=== PATIENT | female | born 1990 | race African-American/Black ===

== ENCOUNTER 2018-12-08 04:09 | Inpatient (IN) | payer MEDICAID ==
[~2018-12-08] VITALS: Ht 165.1 cm; Wt 185.1 kg
[2018-12-08 05:02] LABS: CHLORIDE 106 mEq/L (98-107)
[2018-12-08 05:04] LABS: HEMATOCRIT. 35.2 % (36.0-48.0); HEMOGLOBIN. 11.1 g/dL (12.0-16.0); MEAN CORPUSCULAR HEMOGLOBIN 24.1 pg (28.0-32.0); MEAN CORPUSCULAR VOLUME 76.4 fL (81.0-99.0); MEAN PLATELET VOLUME 7.8 fl (7.4-10.4); PLATELET 399 x1000/uL (130-400); RED BLOOD CELL COUNT 4.61 mill/uL (4.2-5.4); RED CELL DISTRIBUTION WIDTH 16.2 % (11.6-14.6)
[2018-12-08 05:32] LABS: HCG SCREEN NEGATIVE
[2018-12-08 05:51] LABS: CLARITY URINE CLEAR (CLEAR); COLOR URINE YELLOW (YELLOW); KETONES URINE TRACE (NEGATIVE); LEUKOCYTE ESTERASE URINE 1+ (NEGATIVE); NITRITE URINE NEGATIVE (NEGATIVE); OCCULT BLOOD URINE 3+ (NEGATIVE); PH URINE 8.5 (4.5-8.0); PROTEIN URINE NEGATIVE (NEGATIVE)
[2018-12-08] MEDS ORDERED: SODIUM CHLORIDE 0.9% 1,000 ML IV ONE (06:15)
[2018-12-08 06:18] LABS: *AMPHETAMINES SCREEN URINE NEGATIVE (NEGATIVE); *BARBITURATES SCREEN URINE NEGATIVE (NEGATIVE); *COCAINE SCREEN URINE NEGATIVE (NEGATIVE); CANNABINOID URINE SCREEN NEGATIVE (NEGATIVE); PHENCYCLIDINE URINE SCREEN NEGATIVE (NEGATIVE)
[2018-12-08 06:19] LABS: *BENZODIAZEPINES SCREEN URINE NEGATIVE (NEGATIVE); METHADONE URINE SCREEN NEGATIVE (NEGATIVE); OPIATES URINE SCREEN NEGATIVE (NEGATIVE)
[2018-12-08] MEDS ORDERED: SODIUM CHLORIDE 0.9% 1000ML BAG (SEPSIS BOLUS) IV ONE (07:00)
[2018-12-08] MEDS ORDERED: LEVOFLOXACIN 750MG PREMIX 150 ML IV ONE (07:00)
[2018-12-08 07:41] LABS: D-DIMER 0.72 mg/L FEU (<0.50); PARTIAL THROMBOPLASTIN TIME 34.2 sec (23.4-31.0); PROTHROMBIN TIME 10.8 sec (9.6-11.0)
[2018-12-08 10:14] LABS: PLATELET ESTIMATE NORMAL
[2018-12-08] MEDS ORDERED: IOHEXOL-350 100 ML BOTTLE ONE (10:24)
[2018-12-08] MEDS ORDERED: KETOROLAC 15MG/ML VIAL IV PRN (10:30)
[2018-12-08] MEDS ORDERED: NITROGLYCERIN 0.4MG TABLET SL SL PRN (10:30)
[2018-12-08] MEDS ORDERED: DOCUSATE SODIUM 100MG CAPSULE PO PRN (10:30)
[2018-12-08] MEDS ORDERED: ONDANSETRON HCL 4MG/2ML INJ IV PRN (10:30)
[2018-12-08] MEDS ORDERED: MAGNESIUM/ALUMINUM HYDROXIDE/SIMETHICONE 30ML UDC PO PRN (10:30)
[2018-12-08] MEDS ORDERED: CLONIDINE 0.1MG TABLET PO PRN (10:30)
[2018-12-08] MEDS ORDERED: ACETAMINOPHEN 325MG TABLET PO PRN (10:30)
[2018-12-08] MEDS ORDERED: LORAZEPAM 0.5MG TABLET PO PRN (10:30)
[2018-12-08] MEDS ORDERED: IPRATROPIUM/ALBUTEROL 0.5-3(2.5)MG/3ML NEB INH PRN (10:30)
[2018-12-08] MEDS ORDERED: GUAIFENESIN 200MG/10ML SUGAR FREE UDC PO PRN (10:30)
[2018-12-08] MEDS ORDERED: SERT25TA PO (11:53)
[2018-12-08 12:00] VITALS: BP 157/89
[2018-12-08] MEDS ORDERED: BENA20TA77 PO (12:09)
[2018-12-08 12:30] VITALS: BP 157/89
[2018-12-08] MEDS: FAMOTIDINE 20MG TABLET PO SCH ×2 (12:51→21:20)
[2018-12-08] MEDS: ASCORBIC ACID 500 MG TABLET PO SCH ×2 (12:51→21:20)
[2018-12-08] MEDS: GUAIFENESIN/DM 600MG/30MG ER TAB 12HR PO SCH ×2 (12:51→21:20)
[2018-12-08] MEDS ORDERED: AZITHROMYCIN 500 MG in DEXT 5% WATER 250 ML IV SCH (13:00)
[2018-12-08] MEDS: CEFTRIAXONE 1 G PREMIX 50 ML IV SCH (14:34)
[2018-12-08 16:00] VITALS: BP 147/89
[2018-12-08 20:00] VITALS: BP 148/93
[2018-12-08] MEDS ORDERED: ZOLPIDEM TARTRATE 5MG TABLET PO PRN (21:00)
[2018-12-09] VITALS: BP 146/86
[2018-12-09 03:54] VITALS: BP 139/95
[2018-12-09 08:00] VITALS: BP 157/99
[2018-12-09] MEDS: FAMOTIDINE 20MG TABLET PO SCH (08:40)
[2018-12-09] MEDS: GUAIFENESIN/DM 600MG/30MG ER TAB 12HR PO SCH (08:40)
[2018-12-09] MEDS: CEFTRIAXONE 1 G PREMIX 50 ML IV SCH (08:40)
[2018-12-09] MEDS: ASCORBIC ACID 500 MG TABLET PO SCH (08:40)
[2018-12-09 10:11] VITALS: BP 157/99
== END 2018-12-09 12:00 | disposition home or self-care (01) | DRG 463 ==
LOC: ER 04:09 → EDBEDREQTM 06:54 → EDBEDREQ 06:54 → 6WST 10:31 → EDBEDREQTM 10:34 → EDBEDREQ 10:34 → ENRESERV 10:50
PROVIDERS: ADMIT Internal Medicine; ATTEND Internal Medicine
DX: N39.0 Urinary tract infection, site not specified (principal); J18.9 Pneumonia, unspecified organism; R65.10 Systemic inflammatory response syndrome (SIRS) of non-infectious origin without acute organ dysfunction; E66.01 Morbid (severe) obesity due to excess calories; E44.1 Mild protein-calorie malnutrition; Z68.44 Body mass index [BMI] 60.0-69.9, adult; D64.9 Anemia, unspecified
CPT/HCPCS: 36415; 71045; 71275; 80305; 81025; 83036; 83605; 84484; 84703; 85379; 93005; 93970; 96361; 96365; 99285; C1893; J0456; J0696; J1885; J1956; J7030; J7050; J7060; Q9967

== ENCOUNTER 2021-07-30 23:19 | Emergency (ER) | payer OTHER, MEDICAID ==
[~2021-07-30] VITALS: Ht 165.1 cm; Wt 188.0 kg
[~2021-07-30 23:19] MED LIST: BENA20TA77 PO; SERT25TA PO
[2021-07-31] MEDS ORDERED: LABETALOL HCL VIAL 20 MG/4 ML VIAL IV ONE (00:45)
[2021-07-31 01:02] LABS: BASOPHILS % 0.7 % (0.0-2.0); EOSINOPHILS % 1.1 % (0.0-5.0); HEMOGLOBIN. 12.8 g/dL (12.0-16.0); LYMPHOCYTES % 35.3 % (20.0-50.0); MEAN CORPUSCULAR HEMOGLOBIN 24.4 pg (28.0-32.0); MEAN CORPUSCULAR VOLUME 77.9 fL (81.0-99.0); MEAN PLATELET VOLUME 8.6 fl (7.4-10.4); NEUTROPHILS % 58.9 % (40.0-76.0); PLATELET 349 x1000/uL (130-400); RED BLOOD CELL COUNT 5.27 mill/uL (4.2-5.4); RED CELL DISTRIBUTION WIDTH 15.8 % (11.6-14.6)
[2021-07-31 01:09] LABS: CHLORIDE 101 mEq/L (98-107)
[2021-07-31 01:10] LABS: HCG SCREEN NEGATIVE
[2021-07-31] MEDS ORDERED: INSULIN REGULAR (HUMULIN R) 300UNITS/3ML VIAL IV ONE (01:30)
[2021-07-31] MEDS ORDERED: HYDRALAZINE 20MG/ML VIAL IV ONE (01:30)
[2021-07-31] MEDS ORDERED: SODIUM CHLORIDE 0.9% 500 ML IV ONE (01:30)
[2021-07-31] MEDS ORDERED: METF-414 MT (03:08)
[2021-07-31] MEDS ORDERED: AMLO10TA80 MT (03:09)
[2021-07-31 03:40] VITALS: BP 160/93
== END 2021-07-31 03:40 | disposition home or self-care (01) ==
LOC: ER 23:19
DX: I10 Essential (primary) hypertension (principal); R51.9 Headache, unspecified
CPT/HCPCS: 36415; 71045; 80053; 84484; 84703; 85025; 93005; 96361; 96374; 96375; 99285; J0360; J1815; J3490; J7040

== ENCOUNTER 2021-08-28 07:39 | Inpatient (IN) | payer OTHER, MEDICAID ==
[~2021-08-28] VITALS: Ht 165.1 cm; Wt 175.1 kg
[~2021-08-28 07:39] MED LIST changes: +AMLO10TA80 MT; +METF-414 MT
[2021-08-28] MEDS ORDERED: SODIUM CHLORIDE 0.9% 1,000 ML IV ONE (08:00)
[2021-08-28 08:51] LABS: BASOPHILS % 0.4 % (0.0-2.0); EOSINOPHILS % 0.2 % (0.0-5.0); HEMATOCRIT. 47.1 % (36.0-48.0); HEMOGLOBIN. 14.9 g/dL (12.0-16.0); LYMPHOCYTES % 12.7 % (20.0-50.0); MEAN CORPUSCULAR HEMOGLOBIN 24.8 pg (28.0-32.0); MEAN CORPUSCULAR VOLUME 78.1 fL (81.0-99.0); MEAN PLATELET VOLUME 8.8 fl (7.4-10.4); MONOCYTES % 8.7 % (2.0-8.0); PLATELET 432 x1000/uL (130-400); RED BLOOD CELL COUNT 6.02 mill/uL (4.2-5.4); RED CELL DISTRIBUTION WIDTH 18.1 % (11.6-14.6)
[2021-08-28] MEDS ORDERED: INSULIN LISPRO 100 UNITS/ML SUBCUT ONE (09:00)
[2021-08-28 09:01] LABS: CHLORIDE 98 mEq/L (98-107)
[2021-08-28 09:02] LABS: CLARITY URINE TURBID (CLEAR); COLOR URINE ORANGE (YELLOW); KETONES URINE 4+ (NEGATIVE); LEUKOCYTE ESTERASE URINE 2+ (NEGATIVE); NITRITE URINE NEGATIVE (NEGATIVE); OCCULT BLOOD URINE 3+ (NEGATIVE); PROTEIN URINE 2+ (NEGATIVE); SPECIFIC GRAVITY URINE 1.035 (1.005-1.030); UROBILINOGEN URINE 0.2 E.U./dL (0.2-1.0)
[2021-08-28 09:18] LABS: HCG SCREEN NEGATIVE
[2021-08-28] MEDS ORDERED: SODIUM CHLORIDE 0.9% 1000ML BAG (SEPSIS BOLUS) IV SCH (10:00)
[2021-08-28] MEDS ORDERED: SODIUM CHLORIDE 0.45% 1,000 ML IV ONE (10:00)
[2021-08-28] MEDS ORDERED: VANCOMYCIN 1G PREMIX 200 ML IV SCH (10:00)
[2021-08-28] MEDS ORDERED: CEFTRIAXONE 1 G PREMIX 50 ML IV SCH (10:00)
[2021-08-28 10:57] LABS: BG BASE EXCESS -18.5 mmol/L (-2.0-2.0); BG CARBOXYHEMOGLOBIN 0.8 % (0.5-1.5); BG DEOXYHEMOGLOBIN 1.7 % (0.0-5.0); BG FRACTION INSPIRED OXYGEN 21; BG HCO3 ACT 7.2 mmol/L (22.0-26.0); BG METHEMOGLOBIN 0.4 % (0.0-1.5); BG OXYGEN SATURATION 98.3 % (92.0-98.5); BG OXYHEMOGLOBIN 97.1 % (94.0-97.0); BG PCO2 19.1 mmHg (35.0-45.0); BG PH 7.197 (7.350-7.450); BG SAMPLE SITE RIGHT RADIAL; BG VENT MODE ROOM AIR
[2021-08-28] MEDS ORDERED: INSULIN REGULAR 100U/100ML PMX 100 ML IV SCH ×3 (11:00→21:15)
[2021-08-28 11:23] LABS: CHLORIDE 99 mEq/L (98-107)
[2021-08-28 11:25] LABS: PHOSPHORUS 2.3 mg/dL (2.5-4.9)
[2021-08-28 12:44] LABS: CHLORIDE 102 mEq/L (98-107)
[2021-08-28] MEDS ORDERED: ACETAMINOPHEN 325MG TABLET PO PRN ×2 (14:15)
[2021-08-28] MEDS ORDERED: GUAIFENESIN 200MG/10ML SUGAR FREE UDC PO PRN (14:15)
[2021-08-28] MEDS ORDERED: MAGNESIUM/ALUMINUM HYDROXIDE/SIMETHICONE 30ML UDC PO PRN (14:15)
[2021-08-28] MEDS ORDERED: CLONIDINE 0.1MG TABLET PO PRN (14:15)
[2021-08-28] MEDS ORDERED: ENOXAPARIN 40MG/0.4ML SYR SUBCUT SCH (14:15)
[2021-08-28 15:03] LABS: CHLORIDE 108 mEq/L (98-107)
[2021-08-28] MEDS: AMLODIPINE 10MG TABLET PO SCH (15:09)
[2021-08-28] MEDS: ENOXAPARIN 30MG/0.3ML SYR SUBCUT SCH (17:17)
[2021-08-28 18:29] LABS: CHLORIDE 108 mEq/L (98-107)
[2021-08-28] MEDS ORDERED: DEXT 5%/0.45% NACL 1000ML 1,000 ML IV ONE (20:15)
[2021-08-28] MEDS ORDERED: DEXT 5%/0.45% NACL 1000ML 1,000 ML IV SCH (21:00)
[2021-08-28] MEDS: BENAZEPRIL 10MG TABLET PO SCH (21:00)
[2021-08-28] MEDS ORDERED: DEXTROSE 50% WATER 50ML SYRINGE IV PRN ×2 (21:00)
[2021-08-28] MEDS ORDERED: INSULIN REGULAR (DRIP) 100 UNITS in SODIUM CHLORIDE 0.9% 100 ML IV SCH (21:00)
[2021-08-28] MEDS ORDERED: SODIUM CHL 0.9% + KCL 20MEQ/L 1,000 ML IV SCH (22:00)
[2021-08-28 22:22] LABS: CHLORIDE 106 mEq/L (98-107)
[2021-08-28] MEDS: BLOOD SUGAR DIAGNOSTIC STRIP TEST SCH ×3 (22:31→23:20)
[2021-08-28] MEDS: SODIUM CHL 0.45% + KCL 20MEQ/L 1,000 ML IV SCH (23:46)
[2021-08-29] VITALS (14 sets, daily range): BP systolic 115–155; BP diastolic 70–126
[2021-08-29] MEDS ORDERED: POTASSIUM CHLORIDE INJ 40 MEQ in DEXT 5% WATER 250 ML IV SCH ×2
[2021-08-29] MEDS ORDERED: KCL 20MEQ/100ML PREMIX 100 ML IV SCH
[2021-08-29] MEDS: BLOOD SUGAR DIAGNOSTIC STRIP TEST SCH ×24 (00:26→23:00)
[2021-08-29 02:53] LABS: CHLORIDE 104 mEq/L (98-107)
[2021-08-29] MEDS: SODIUM CHL 0.45% + KCL 20MEQ/L 1,000 ML IV SCH (04:30)
[2021-08-29 05:56] LABS: HEMATOCRIT. 42.1 % (36.0-48.0); MEAN CORPUSCULAR HEMOGLOBIN 24.4 pg (28.0-32.0); MEAN CORPUSCULAR VOLUME 79.1 fL (81.0-99.0); RED BLOOD CELL COUNT 5.32 mill/uL (4.2-5.4); RED CELL DISTRIBUTION WIDTH 17.7 % (11.6-14.6)
[2021-08-29 06:02] LABS: CHLORIDE 106 mEq/L (98-107)
[2021-08-29] MEDS: SODIUM CHLORIDE 0.9% 1,000 ML IV SCH ×3 (06:16→13:56)
[2021-08-29] MEDS: ENOXAPARIN 30MG/0.3ML SYR SUBCUT SCH (06:23)
[2021-08-29 08:36] LABS: MEAN PLATELET VOLUME 8.7 fl (7.4-10.4); PLATELET 354 x1000/uL (130-400); PLATELET ESTIMATE NORMAL
[2021-08-29] MEDS: AMLODIPINE 10MG TABLET PO SCH (09:00)
[2021-08-29] MEDS: PANTOPRAZOLE SODIUM 40 MG/VIAL IV SCH (10:45)
[2021-08-29 10:53] LABS: CHLORIDE 109 mEq/L (98-107)
[2021-08-29] MEDS ORDERED: HYDROCODONE/ACETAMINOPHEN 5/325MG TABLET PO SCH (11:45)
[2021-08-29] MEDS ORDERED: MORPHINE SULFATE 4 MG/ML CPJ (NOT FOR IM USE) IV PRN (13:15)
[2021-08-29] MEDS: CEFTRIAXONE 1,000 MG in DEXTROSE 5% WATER 50 ML IV SCH (13:47)
[2021-08-29] MEDS ORDERED: ACETAMINOPHEN 325MG TABLET PO PRN (14:15)
[2021-08-29 14:23] LABS: CHLORIDE 109 mEq/L (98-107)
[2021-08-29] MEDS ORDERED: DEXT 5%/0.45% NACL 1000ML 1,000 ML IV SCH (15:00)
[2021-08-29] MEDS ORDERED: KCL 20MEQ/100ML PREMIX 100 ML IV NR ×2 (16:00→23:00)
[2021-08-29] MEDS: ENOXAPARIN 40MG/0.4ML SYR SUBCUT SCH (18:07)
[2021-08-29 18:35] LABS: CHLORIDE 110 mEq/L (98-107)
[2021-08-29] MEDS: HYDROCODONE/ACETAMINOPHEN 5/325MG TABLET PO PRN ×3 (21:14→22:28)
[2021-08-29] MEDS: BENAZEPRIL 10MG TABLET PO SCH (21:14)
[2021-08-29 21:57] LABS: CHLORIDE 112 mEq/L (98-107)
[2021-08-29] MEDS: DEXT 5%/0.45% NACL KCL 20MEQ/L 1,000 ML IV SCH (22:44)
[2021-08-29] MEDS ORDERED: PHENYLEPHRINE 50 MG in DEXT 5% WATER 245 ML IV PRN (23:15)
[2021-08-30] VITALS (14 sets, daily range): BP systolic 82–130; BP diastolic 49–86
[2021-08-30] MEDS: BLOOD SUGAR DIAGNOSTIC STRIP TEST SCH ×15 (00:06→21:00)
[2021-08-30 00:50] LABS: CHLORIDE 112 mEq/L (98-107)
[2021-08-30 02:30] LABS: CHLORIDE 112 mEq/L (98-107)
[2021-08-30] MEDS: DEXT 5%/0.45% NACL KCL 20MEQ/L 1,000 ML IV SCH ×4 (04:30→16:30)
[2021-08-30] MEDS: DOXYCYCLINE 100 MG in DEXT 5% WATER 100 ML IV SCH ×3 (04:32→23:58)
[2021-08-30] MEDS: ENOXAPARIN 40MG/0.4ML SYR SUBCUT SCH ×2 (05:28→18:37)
[2021-08-30] MEDS: FLUCONAZOLE 200 MG/100ML BAG 100 ML IV SCH (05:31)
[2021-08-30 06:49] LABS: HEMATOCRIT. 38.1 % (36.0-48.0); HEMOGLOBIN. 12.2 g/dL (12.0-16.0); MEAN CORPUSCULAR HEMOGLOBIN 24.2 pg (28.0-32.0); MEAN CORPUSCULAR VOLUME 75.5 fL (81.0-99.0); MEAN PLATELET VOLUME 8.6 fl (7.4-10.4); PLATELET 357 x1000/uL (130-400); RED BLOOD CELL COUNT 5.04 mill/uL (4.2-5.4); RED CELL DISTRIBUTION WIDTH 17.7 % (11.6-14.6)
[2021-08-30 07:36] LABS: CHLORIDE 114 mEq/L (98-107)
[2021-08-30 07:53] LABS: PHOSPHORUS 0.7 mg/dL (2.5-4.9)
[2021-08-30] MEDS ORDERED: KCL 20MEQ/100ML PREMIX 100 ML IV SCH (09:00)
[2021-08-30] MEDS: AMLODIPINE 10MG TABLET PO SCH (09:00)
[2021-08-30] MEDS ORDERED: NALOXONE HCL 0.4MG/ML VIAL IV PRN (09:15)
[2021-08-30] MEDS: NYSTATIN POWDER 15GM TOP SCH ×3 (09:31→18:37)
[2021-08-30] MEDS ORDERED: INSULIN GLARGINE UD 100 UNITS/ML SYR SUBCUT SCH ×2 (10:00)
[2021-08-30] MEDS ORDERED: POTASSIUM PHOS,M-BASIC-D-BASIC 30 MMOL in SODIUM CHLORIDE 0.9% 500 ML IV NR (10:00)
[2021-08-30] MEDS: PANTOPRAZOLE SODIUM 40 MG/VIAL IV SCH (10:01)
[2021-08-30] MEDS ORDERED: INSULIN LISPRO 100 UNITS/ML SUBCUT SCH (11:30)
[2021-08-30] MEDS: INSULIN LISPRO 100 UNITS/ML SUBCUT SCH ×6 (12:50→22:33)
[2021-08-30] MEDS: HYDROCODONE/ACETAMINOPHEN 5/325MG TABLET PO PRN (13:05)
[2021-08-30] MEDS ORDERED: NYSTATIN/TRIAMCIN CREAM 15GM TOP SCH (15:00)
[2021-08-30] MEDS: CEFTRIAXONE 1,000 MG in DEXTROSE 5% WATER 50 ML IV SCH (15:01)
[2021-08-30 16:38] LABS: PLATELET ESTIMATE NORMAL
[2021-08-30] MEDS: MORPHINE SULFATE 2 MG/ML CPJ (NOT FOR IM USE) IV PRN (18:04)
[2021-08-30] MEDS: CHLORHEXIDINE GLUCONATE 4% EXTERNAL USE TOP SCH ×2 (18:37→22:22)
[2021-08-30 20:37] LABS: CHLORIDE 113 mEq/L (98-107)
[2021-08-30] MEDS ORDERED: POTASSIUM CHLORIDE INJ 40 MEQ in DEXT 5% WATER 250 ML IV ONE (21:00)
[2021-08-30] MEDS ORDERED: KCL 20MEQ/100ML PREMIX 100 ML IV NR (22:00)
[2021-08-30] MEDS ORDERED: KCL 20MEQ/100ML X 2 FOR TOTAL KCL 40MEQ/200ML IV SCH (22:00)
[2021-08-31] VITALS (15 sets, daily range): BP systolic 106–142; BP diastolic 67–99
[2021-08-31] MEDS: FLUCONAZOLE 200 MG/100ML BAG 100 ML IV SCH (00:46)
[2021-08-31] MEDS: MORPHINE SULFATE 2 MG/ML CPJ (NOT FOR IM USE) IV PRN ×2 (04:09→18:06)
[2021-08-31] MEDS: ENOXAPARIN 40MG/0.4ML SYR SUBCUT SCH ×2 (06:44→17:21)
[2021-08-31] MEDS: POLYETHYLENE GLYCOL 3350 (17GM) 1 DOSE PACK PO PRN (06:44)
[2021-08-31 07:08] LABS: HEMATOCRIT. 39.6 % (36.0-48.0); HEMOGLOBIN. 13.1 g/dL (12.0-16.0); MEAN CORPUSCULAR HEMOGLOBIN 25.2 pg (28.0-32.0); MEAN CORPUSCULAR VOLUME 76.3 fL (81.0-99.0); MEAN PLATELET VOLUME 9.3 fl (7.4-10.4); PLATELET 355 x1000/uL (130-400); RED BLOOD CELL COUNT 5.19 mill/uL (4.2-5.4)
[2021-08-31 07:15] LABS: CHLORIDE 110 mEq/L (98-107)
[2021-08-31 07:27] LABS: PHOSPHORUS 2.1 mg/dL (2.5-4.9)
[2021-08-31] MEDS: BLOOD SUGAR DIAGNOSTIC STRIP TEST SCH ×4 (08:46→21:00)
[2021-08-31] MEDS: AMLODIPINE 10MG TABLET PO SCH (08:49)
[2021-08-31] MEDS: PANTOPRAZOLE SODIUM 40 MG/VIAL IV SCH (09:01)
[2021-08-31] MEDS: INSULIN LISPRO 100 UNITS/ML SUBCUT SCH ×7 (09:02→22:22)
[2021-08-31] MEDS: CHLORHEXIDINE GLUCONATE 4% EXTERNAL USE TOP SCH ×4 (09:03→22:18)
[2021-08-31] MEDS: NYSTATIN POWDER 15GM TOP SCH ×3 (09:03→17:20)
[2021-08-31] MEDS ORDERED: POTASSIUM PHOS,M-BASIC-D-BASIC 15 MMOL in DEXT 5% WATER 245 ML IV NR (10:00)
[2021-08-31] MEDS ORDERED: INSULIN GLARGINE UD 100 UNITS/ML SYR SUBCUT SCH (11:00)
[2021-08-31] MEDS: CEFTRIAXONE 1,000 MG in DEXTROSE 5% WATER 50 ML IV SCH (14:11)
[2021-08-31 14:35] LABS: CHLORIDE 108 mEq/L (98-107)
[2021-08-31 14:41] LABS: PHOSPHORUS 1.8 mg/dL (2.5-4.9)
[2021-08-31] MEDS: SODIUM CHL 0.9% + KCL 20MEQ/L 1,000 ML IV SCH ×2 (15:08→22:28)
[2021-08-31 16:35] LABS: PLATELET ESTIMATE NORMAL
[2021-09-01] VITALS: BP 129/95
[2021-09-01] MEDS: SODIUM CHL 0.9% + KCL 20MEQ/L 1,000 ML IV SCH ×3 (01:35→19:02)
[2021-09-01] MEDS: FLUCONAZOLE 200 MG/100ML BAG 100 ML IV SCH (01:40)
[2021-09-01 02:26] LABS: CHLORIDE 109 mEq/L (98-107)
[2021-09-01 02:33] LABS: PHOSPHORUS 2.6 mg/dL (2.5-4.9)
[2021-09-01 04:00] VITALS: BP 143/98
[2021-09-01] MEDS: ENOXAPARIN 40MG/0.4ML SYR SUBCUT SCH ×2 (05:26→19:03)
[2021-09-01] MEDS: DOXYCYCLINE 100 MG in DEXT 5% WATER 100 ML IV SCH ×2 (05:26→13:48)
[2021-09-01 06:25] LABS: HEMATOCRIT. 35.2 % (36.0-48.0); HEMOGLOBIN. 11.5 g/dL (12.0-16.0); MEAN CORPUSCULAR HEMOGLOBIN 24.5 pg (28.0-32.0); MEAN CORPUSCULAR VOLUME 75.2 fL (81.0-99.0); MEAN PLATELET VOLUME 8.6 fl (7.4-10.4); PLATELET 381 x1000/uL (130-400); RED BLOOD CELL COUNT 4.68 mill/uL (4.2-5.4); RED CELL DISTRIBUTION WIDTH 17.6 % (11.6-14.6)
[2021-09-01 07:14] LABS: CHLORIDE 106 mEq/L (98-107)
[2021-09-01 07:19] LABS: PHOSPHORUS 2.4 mg/dL (2.5-4.9)
[2021-09-01] MEDS: BLOOD SUGAR DIAGNOSTIC STRIP TEST SCH ×3 (07:20→17:20)
[2021-09-01] MEDS ORDERED: POTASSIUM CHLORIDE INJ 40 MEQ in DEXT 5% WATER 500 ML IV ONE (07:45)
[2021-09-01 08:00] VITALS: BP 137/94
[2021-09-01] MEDS: PANTOPRAZOLE SODIUM 40 MG/VIAL IV SCH (08:56)
[2021-09-01] MEDS: ONDANSETRON HCL 4MG/2ML INJ IV PRN (08:57)
[2021-09-01] MEDS: AMLODIPINE 10MG TABLET PO SCH (08:57)
[2021-09-01] MEDS: NYSTATIN POWDER 15GM TOP SCH ×3 (09:48→19:08)
[2021-09-01] MEDS: CHLORHEXIDINE GLUCONATE 4% EXTERNAL USE TOP SCH ×4 (09:48→21:20)
[2021-09-01] MEDS: INSULIN LISPRO 100 UNITS/ML SUBCUT SCH ×5 (09:49→21:21)
[2021-09-01] MEDS ORDERED: KCL 20MEQ/100ML X 2 FOR TOTAL KCL 40MEQ/200ML IV SCH (10:00)
[2021-09-01] MEDS ORDERED: INSULIN GLARGINE UD 100 UNITS/ML SYR SUBCUT SCH (10:00)
[2021-09-01 10:11] LABS: PLATELET ESTIMATE NORMAL
[2021-09-01 12:00] VITALS: BP 117/79
[2021-09-01] MEDS ORDERED: POTASSIUM CHLORIDE 20MEQ TABLET SR PO NR (12:15)
[2021-09-01] MEDS ORDERED: INSULIN GLARGINE UD 100 UNITS/ML SYR SUBCUT NR ×2 (13:00→20:00)
[2021-09-01] MEDS: CEFTRIAXONE 1,000 MG in DEXTROSE 5% WATER 50 ML IV SCH (15:39)
[2021-09-01 16:00] VITALS: BP 137/84
[2021-09-01 17:34] LABS: CHLORIDE 105 mEq/L (98-107)
[2021-09-01 17:39] LABS: PHOSPHORUS 1.7 mg/dL (2.5-4.9)
[2021-09-01] MEDS ORDERED: INSULIN LISPRO 100 UNITS/ML SUBCUT NR (18:40)
[2021-09-01 20:00] VITALS: BP 139/91
[2021-09-01] MEDS ORDERED: POTASSIUM PHOS,M-BASIC-D-BASIC 30 MMOL in DEXT 5% WATER 500 ML IV NR (20:00)
[2021-09-02] VITALS: BP 154/106
[2021-09-02] MEDS: FLUCONAZOLE 200 MG/100ML BAG 100 ML IV SCH (00:11)
[2021-09-02] MEDS: DOXYCYCLINE 100 MG in DEXT 5% WATER 100 ML IV SCH ×2 (00:11→12:47)
[2021-09-02] MEDS: SODIUM CHL 0.9% + KCL 20MEQ/L 1,000 ML IV SCH ×3 (02:55→23:19)
[2021-09-02 04:00] VITALS: BP 145/81
[2021-09-02] MEDS: ENOXAPARIN 40MG/0.4ML SYR SUBCUT SCH ×2 (06:06→18:53)
[2021-09-02 07:50] VITALS: BP 139/102
[2021-09-02] MEDS: AMLODIPINE 10MG TABLET PO SCH (09:21)
[2021-09-02] MEDS: FAMOTIDINE 20MG/2ML VIAL IV SCH ×2 (09:21→20:33)
[2021-09-02] MEDS: INSULIN LISPRO 100 UNITS/ML SUBCUT SCH ×7 (09:27→21:24)
[2021-09-02] MEDS ORDERED: INSULIN GLARGINE UD 100 UNITS/ML SYR SUBCUT SCH (10:00)
[2021-09-02 12:00] VITALS: BP 135/80
[2021-09-02] MEDS: INSULIN GLARGINE UD 100 UNITS/ML SYR SUBCUT SCH (12:46)
[2021-09-02] MEDS: CHLORHEXIDINE GLUCONATE 4% EXTERNAL USE TOP SCH ×4 (12:47→20:33)
[2021-09-02] MEDS: NYSTATIN POWDER 15GM TOP SCH ×3 (12:47→18:56)
[2021-09-02 15:49] LABS: CLARITY URINE CLEAR (CLEAR); KETONES URINE NEGATIVE (NEGATIVE); LEUKOCYTE ESTERASE URINE 1+ (NEGATIVE); NITRITE URINE NEGATIVE (NEGATIVE); OCCULT BLOOD URINE 2+ (NEGATIVE); PROTEIN URINE 1+ (NEGATIVE); SPECIFIC GRAVITY URINE 1.009 (1.005-1.030); UROBILINOGEN URINE 0.2 E.U./dL (0.2-1.0)
[2021-09-02] MEDS: CEFTRIAXONE 1,000 MG in DEXTROSE 5% WATER 50 ML IV SCH (16:02)
[2021-09-02 16:09] VITALS: BP 159/92
[2021-09-02 16:14] LABS: COLOR URINE YELLOW (YELLOW)
[2021-09-02 17:54] LABS: HEMATOCRIT. 34.4 % (36.0-48.0); MEAN CORPUSCULAR VOLUME 75.4 fL (81.0-99.0); MEAN PLATELET VOLUME 8.6 fl (7.4-10.4); PLATELET 385 x1000/uL (130-400); RED BLOOD CELL COUNT 4.56 mill/uL (4.2-5.4); RED CELL DISTRIBUTION WIDTH 17.2 % (11.6-14.6)
[2021-09-02 18:02] LABS: CHLORIDE 104 mEq/L (98-107)
[2021-09-02 18:09] LABS: PHOSPHORUS 2.3 mg/dL (2.5-4.9)
[2021-09-02 18:23] LABS: PLATELET ESTIMATE NORMAL
[2021-09-02] MEDS ORDERED: POTASSIUM CHLORIDE INJ 40 MEQ in DEXT 5% WATER 250 ML IV ONE (18:30)
[2021-09-02 20:00] VITALS: BP 126/86
[2021-09-02] MEDS: KCL 20MEQ/100ML X 2 FOR TOTAL KCL 40MEQ/200ML IV SCH ×2 (20:00→20:33)
[2021-09-02] MEDS ORDERED: POTASSIUM CHLORIDE 20MEQ TABLET SR PO SCH (20:00)
[2021-09-03] VITALS: BP 150/92
[2021-09-03] MEDS ORDERED: KCL 20MEQ/100ML PREMIX 100 ML IV SCH
[2021-09-03] MEDS: DOXYCYCLINE 100 MG in DEXT 5% WATER 100 ML IV SCH ×2 (00:28→13:27)
[2021-09-03] MEDS: FLUCONAZOLE 200 MG/100ML BAG 100 ML IV SCH (00:28)
[2021-09-03 00:49] LABS: CHLORIDE 103 mEq/L (98-107)
[2021-09-03 04:00] VITALS: BP 145/83
[2021-09-03] MEDS: ENOXAPARIN 40MG/0.4ML SYR SUBCUT SCH ×2 (05:01→17:58)
[2021-09-03 06:51] LABS: HEMATOCRIT. 34.4 % (36.0-48.0); MEAN PLATELET VOLUME 8.7 fl (7.4-10.4); PLATELET 389 x1000/uL (130-400); RED BLOOD CELL COUNT 4.59 mill/uL (4.2-5.4); RED CELL DISTRIBUTION WIDTH 17.2 % (11.6-14.6)
[2021-09-03 06:58] LABS: CHLORIDE 102 mEq/L (98-107)
[2021-09-03 07:07] LABS: PHOSPHORUS 2.3 mg/dL (2.5-4.9)
[2021-09-03] MEDS: INSULIN LISPRO 100 UNITS/ML SUBCUT SCH ×7 (07:20→20:32)
[2021-09-03 08:00] VITALS: BP 132/75
[2021-09-03] MEDS ORDERED: POTASSIUM CHLORIDE 20MEQ/PACKET PO NR (08:45)
[2021-09-03] MEDS: AMLODIPINE 10MG TABLET PO SCH (09:42)
[2021-09-03] MEDS: FAMOTIDINE 20MG/2ML VIAL IV SCH ×2 (09:42→20:19)
[2021-09-03] MEDS: SODIUM CHL 0.9% + KCL 20MEQ/L 1,000 ML IV SCH (09:43)
[2021-09-03] MEDS: NYSTATIN POWDER 15GM TOP SCH ×3 (09:43→18:02)
[2021-09-03] MEDS ORDERED: POTASSIUM PHOS,M-BASIC-D-BASIC 15 MMOL in DEXT 5% WATER 245 ML IV SCH (10:00)
[2021-09-03] MEDS: INSULIN GLARGINE UD 100 UNITS/ML SYR SUBCUT SCH (11:01)
[2021-09-03] MEDS: CHLORHEXIDINE GLUCONATE 4% EXTERNAL USE TOP SCH ×4 (11:08→20:20)
[2021-09-03 12:00] VITALS: BP 138/78
[2021-09-03 12:51] LABS: PLATELET ESTIMATE NORMAL
[2021-09-03 16:00] VITALS: BP 122/76
[2021-09-03 16:29] LABS: CHLORIDE 104 mEq/L (98-107)
[2021-09-03 16:34] LABS: PHOSPHORUS 2.5 mg/dL (2.5-4.9)
[2021-09-03 16:35] LABS: TOTAL IRON BINDING CAPACITY 175 ug/dL (250-450)
[2021-09-03 16:49] LABS: FOLIC ACID (FOLATE) SERUM 9.7 ng/mL (>5.38)
[2021-09-03] MEDS: FERROUS SULFATE 325MG TABLET PO SCH (17:58)
[2021-09-03] MEDS: POTASSIUM CHLORIDE 20MEQ/PACKET PO SCH (18:06)
[2021-09-03 20:00] VITALS: BP 113/76
[2021-09-03] MEDS: POLYETHYLENE GLYCOL 3350 (17GM) 1 DOSE PACK PO PRN (20:19)
[2021-09-04] VITALS: BP 109/79
[2021-09-04] MEDS: DOXYCYCLINE 100 MG in DEXT 5% WATER 100 ML IV SCH (00:29)
[2021-09-04] MEDS: FLUCONAZOLE 200 MG/100ML BAG 100 ML IV SCH (00:29)
[2021-09-04 04:00] VITALS: BP 124/83
[2021-09-04] MEDS: ENOXAPARIN 40MG/0.4ML SYR SUBCUT SCH ×2 (05:41→17:28)
[2021-09-04 07:18] LABS: HEMATOCRIT. 33.8 % (36.0-48.0); MEAN CORPUSCULAR HEMOGLOBIN 24.9 pg (28.0-32.0); MEAN CORPUSCULAR VOLUME 76.6 fL (81.0-99.0); MEAN PLATELET VOLUME 8.5 fl (7.4-10.4); PLATELET 391 x1000/uL (130-400); RED BLOOD CELL COUNT 4.42 mill/uL (4.2-5.4); RED CELL DISTRIBUTION WIDTH 17.6 % (11.6-14.6)
[2021-09-04] MEDS: INSULIN LISPRO 100 UNITS/ML SUBCUT SCH ×7 (07:20→21:00)
[2021-09-04 07:41] LABS: CHLORIDE 102 mEq/L (98-107)
[2021-09-04 07:47] LABS: PHOSPHORUS 2.9 mg/dL (2.5-4.9)
[2021-09-04 08:00] VITALS: BP 132/85
[2021-09-04] MEDS: INSULIN GLARGINE UD 100 UNITS/ML SYR SUBCUT SCH (10:00)
[2021-09-04] MEDS: FAMOTIDINE 20MG/2ML VIAL IV SCH ×2 (10:06→21:47)
[2021-09-04] MEDS: AMLODIPINE 10MG TABLET PO SCH (10:07)
[2021-09-04] MEDS: POTASSIUM CHLORIDE 20MEQ/PACKET PO SCH ×2 (10:08→17:29)
[2021-09-04] MEDS: NYSTATIN POWDER 15GM TOP SCH ×3 (10:08→17:29)
[2021-09-04] MEDS: CHLORHEXIDINE GLUCONATE 4% EXTERNAL USE TOP SCH ×4 (10:09→21:48)
[2021-09-04 12:00] VITALS: BP 109/76
[2021-09-04 12:39] LABS: CHLORIDE 102 mEq/L (98-107)
[2021-09-04 12:45] LABS: PHOSPHORUS 3.5 mg/dL (2.5-4.9)
[2021-09-04 13:23] LABS: CLARITY URINE CLEAR (CLEAR); COLOR URINE YELLOW (YELLOW); KETONES URINE TRACE (NEGATIVE); LEUKOCYTE ESTERASE URINE TRACE (NEGATIVE); NITRITE URINE NEGATIVE (NEGATIVE); OCCULT BLOOD URINE 1+ (NEGATIVE); PH URINE 6.5 (4.5-8.0); PROTEIN URINE TRACE (NEGATIVE); SPECIFIC GRAVITY URINE 1.012 (1.005-1.030); UROBILINOGEN URINE 0.2 E.U./dL (0.2-1.0)
[2021-09-04 13:59] LABS: NUCLEATED RED BLOOD CELLS 1 /100 WBC; PLATELET ESTIMATE NORMAL
[2021-09-04 16:00] VITALS: BP 118/85
[2021-09-04] MEDS: DOXYCYCLINE HYCLATE 100MG CAPSULE PO SCH (17:28)
[2021-09-04 20:00] VITALS: BP 134/85
[2021-09-04] MEDS: ONDANSETRON HCL 4MG/2ML INJ IV PRN (21:47)
[2021-09-04] MEDS ORDERED: NYST15PO4 TP ×2 (22:37)
[2021-09-04] MEDS ORDERED: HIBIL TOP ×2 (22:37)
[2021-09-04] MEDS ORDERED: INSU100I38 SQ ×2 (22:37)
[2021-09-04] MEDS ORDERED: DOXY100C5 PO ×2 (22:37)
[2021-09-04] MEDS ORDERED: POLY17PO3 PO ×2 (22:37)
[2021-09-04] MEDS ORDERED: [UNRECOGNIZED DRUG - CODE] MC ×2 (22:37)
[2021-09-04] MEDS ORDERED: INSU100I24 SQ ×2 (22:37)
[2021-09-04] MEDS ORDERED: LANC1KIT37 MC ×2 (22:37)
[2021-09-04] MEDS ORDERED: AMLO10TA80 MT ×2 (22:37)
[2021-09-04] MEDS ORDERED: FERR-63 PO ×2 (22:37)
[2021-09-04] MEDS ORDERED: TOPUD PO ×2 (22:37)
[2021-09-05] VITALS: BP 136/85
[2021-09-05 04:00] VITALS: BP 136/73
[2021-09-05] MEDS: ENOXAPARIN 40MG/0.4ML SYR SUBCUT SCH ×3 (06:00→18:43)
[2021-09-05 06:27] LABS: BASOPHILS % 0.4 % (0.0-2.0); EOSINOPHILS % 3.2 % (0.0-5.0); HEMATOCRIT. 34.9 % (36.0-48.0); HEMOGLOBIN. 11.4 g/dL (12.0-16.0); LYMPHOCYTES % 30.7 % (20.0-50.0); MEAN CORPUSCULAR HEMOGLOBIN 24.8 pg (28.0-32.0); MEAN CORPUSCULAR VOLUME 76.1 fL (81.0-99.0); MEAN PLATELET VOLUME 8.5 fl (7.4-10.4); NEUTROPHILS % 55.7 % (40.0-76.0); PLATELET 432 x1000/uL (130-400); RED BLOOD CELL COUNT 4.59 mill/uL (4.2-5.4); RED CELL DISTRIBUTION WIDTH 17.8 % (11.6-14.6)
[2021-09-05] MEDS: INSULIN LISPRO 100 UNITS/ML SUBCUT SCH ×7 (06:46→20:58)
[2021-09-05 07:08] LABS: CHLORIDE 102 mEq/L (98-107)
[2021-09-05 07:16] LABS: PHOSPHORUS 3.2 mg/dL (2.5-4.9)
[2021-09-05 08:00] VITALS: BP 118/89
[2021-09-05] MEDS: CHLORHEXIDINE GLUCONATE 4% EXTERNAL USE TOP SCH ×4 (09:00→21:00)
[2021-09-05] MEDS: NYSTATIN POWDER 15GM TOP SCH ×3 (09:00→18:44)
[2021-09-05] MEDS: POTASSIUM CHLORIDE 20MEQ/PACKET PO SCH (10:02)
[2021-09-05] MEDS: FERROUS SULFATE 325MG TABLET PO SCH (10:03)
[2021-09-05] MEDS: FAMOTIDINE 20MG/2ML VIAL IV SCH ×2 (10:03→21:00)
[2021-09-05] MEDS: AMLODIPINE 10MG TABLET PO SCH (10:03)
[2021-09-05] MEDS: DOXYCYCLINE HYCLATE 100MG CAPSULE PO SCH ×2 (10:03→18:43)
[2021-09-05] MEDS: INSULIN GLARGINE UD 100 UNITS/ML SYR SUBCUT SCH (10:06)
[2021-09-05] MEDS: ONDANSETRON HCL 4MG/2ML INJ IV PRN (10:47)
[2021-09-05 12:00] VITALS: BP 126/88
[2021-09-05 16:00] VITALS: BP 120/79
[2021-09-05] MEDS: BLOOD SUGAR DIAGNOSTIC STRIP TEST SCH ×2 (17:20→20:58)
[2021-09-05 20:00] VITALS: BP 126/70
[2021-09-06] VITALS: BP 140/90
[2021-09-06] MEDS: ONDANSETRON HCL 4MG/2ML INJ IV PRN (00:25)
[2021-09-06 04:00] VITALS: BP 135/84
[2021-09-06] MEDS: ENOXAPARIN 40MG/0.4ML SYR SUBCUT SCH ×2 (05:57→17:56)
[2021-09-06] MEDS: BLOOD SUGAR DIAGNOSTIC STRIP TEST SCH ×4 (06:53→21:40)
[2021-09-06] MEDS: INSULIN LISPRO 100 UNITS/ML SUBCUT SCH ×7 (07:20→21:00)
[2021-09-06 07:45] LABS: BASOPHILS % 0.5 % (0.0-2.0); HEMATOCRIT. 32.8 % (36.0-48.0); HEMOGLOBIN. 10.8 g/dL (12.0-16.0); LYMPHOCYTES % 34.4 % (20.0-50.0); MEAN CORPUSCULAR HEMOGLOBIN 25.2 pg (28.0-32.0); MEAN CORPUSCULAR VOLUME 76.8 fL (81.0-99.0); MEAN PLATELET VOLUME 8.1 fl (7.4-10.4); MONOCYTES % 11.5 % (2.0-8.0); NEUTROPHILS % 49.6 % (40.0-76.0); PLATELET 409 x1000/uL (130-400); RED BLOOD CELL COUNT 4.27 mill/uL (4.2-5.4)
[2021-09-06 08:00] VITALS: BP 137/82
[2021-09-06 08:17] LABS: CHLORIDE 101 mEq/L (98-107)
[2021-09-06 08:25] LABS: PHOSPHORUS 3.7 mg/dL (2.5-4.9)
[2021-09-06] MEDS: CHLORHEXIDINE GLUCONATE 4% EXTERNAL USE TOP SCH ×4 (08:33→21:50)
[2021-09-06] MEDS: DOXYCYCLINE HYCLATE 100MG CAPSULE PO SCH ×2 (08:34→17:56)
[2021-09-06] MEDS: NYSTATIN POWDER 15GM TOP SCH ×3 (08:34→17:57)
[2021-09-06] MEDS: AMLODIPINE 10MG TABLET PO SCH (08:34)
[2021-09-06] MEDS: FAMOTIDINE 20MG/2ML VIAL IV SCH ×2 (08:34→21:50)
[2021-09-06] MEDS: INSULIN GLARGINE UD 100 UNITS/ML SYR SUBCUT SCH (10:00)
[2021-09-06 12:00] VITALS: BP 120/91
[2021-09-06 16:00] VITALS: BP 124/75
[2021-09-06 20:00] VITALS: BP 122/83
[2021-09-07] VITALS: BP 120/81
[2021-09-07 04:00] VITALS: BP 141/82
[2021-09-07] MEDS: BLOOD SUGAR DIAGNOSTIC STRIP TEST SCH ×3 (06:44→16:36)
[2021-09-07] MEDS: ENOXAPARIN 40MG/0.4ML SYR SUBCUT SCH ×2 (06:44→17:09)
[2021-09-07] MEDS: INSULIN LISPRO 100 UNITS/ML SUBCUT SCH ×6 (06:44→17:09)
[2021-09-07 08:03] VITALS: BP 120/76
[2021-09-07] MEDS: FAMOTIDINE 20MG/2ML VIAL IV SCH (08:50)
[2021-09-07] MEDS: AMLODIPINE 10MG TABLET PO SCH (08:50)
[2021-09-07] MEDS: FERROUS SULFATE 325MG TABLET PO SCH (08:50)
[2021-09-07] MEDS: DOXYCYCLINE HYCLATE 100MG CAPSULE PO SCH ×2 (08:50→16:36)
[2021-09-07] MEDS: NYSTATIN POWDER 15GM TOP SCH ×3 (08:51→16:36)
[2021-09-07] MEDS: CHLORHEXIDINE GLUCONATE 4% EXTERNAL USE TOP SCH ×3 (08:51→16:36)
[2021-09-07] MEDS ORDERED: INSU100I24 SQ ×2 (09:01)
[2021-09-07] MEDS ORDERED: INSU100I38 SQ ×2 (09:01)
[2021-09-07] MEDS ORDERED: INSULIN GLARGINE UD 100 UNITS/ML SYR SUBCUT SCH (10:00)
[2021-09-07 11:56] VITALS: BP_SYST 116; BP_SYST 178; BP_DIAS 76; BP_DIAS 78
[2021-09-07 16:11] VITALS: BP 178/76
[2021-09-07 16:17] VITALS: BP 122/76
== END 2021-09-07 17:55 | disposition home health service (06) | DRG 871 ==
LOC: ER 07:39 → MICUSO 10:58 → SUPCPDRO 13:01 → CVICU 08-29 08:35 → 6EST 08-31 16:12 → 6WST 09-01 16:35
PROVIDERS: ADMIT Internal Medicine; ATTEND Internal Medicine
DX: A41.9 Sepsis, unspecified organism (principal); E11.10 Type 2 diabetes mellitus with ketoacidosis without coma; Z68.44 Body mass index [BMI] 60.0-69.9, adult; N39.0 Urinary tract infection, site not specified; E46 Unspecified protein-calorie malnutrition; I10 Essential (primary) hypertension; B37.2 Candidiasis of skin and nail; E66.01 Morbid (severe) obesity due to excess calories; L73.2 Hidradenitis suppurativa; L08.9 Local infection of the skin and subcutaneous tissue, unspecified; S79.929A Unspecified injury of unspecified thigh, initial encounter; Z20.822 Contact with and (suspected) exposure to COVID-19; X58.XXXA Exposure to other specified factors, initial encounter; S39.92XA Unspecified injury of lower back, initial encounter; L02.92 Furuncle, unspecified; S49.90XA Unspecified injury of shoulder and upper arm, unspecified arm, initial encounter; E87.6 Hypokalemia; E83.39 Other disorders of phosphorus metabolism; Z79.84 Long term (current) use of oral hypoglycemic drugs; Z79.899 Other long term (current) drug therapy; Z74.01 Bed confinement status; Y93.89 Activity, other specified; Y92.89 Other specified places as the place of occurrence of the external cause; Y99.8 Other external cause status; Z79.4 Long term (current) use of insulin
CPT/HCPCS: 36415; 36600; 74176; 80048; 80053; 81003; 82040; 82375; 82436; 82570; 82607; 82728; 82746; 82805; 82962; 83036; 83540; 83550; 83605; 83735; 84100; 84133; 84134; 84145; 84300; 84443; 84703; 85025; 86703; 87077; 87102; 87426; 93005; 93970; 97110; 97162; 97166; 97530; 97535; 99291; A6261; C1893; C9113; J0696; J1450; J1650; J1815; J2270; J2370; J2405; J3370; J3480; J3490; J7030; J7040; J7050; J7060; A4315

== ENCOUNTER 2021-11-02 13:13 | Emergency (ER) | payer BC, MEDICAID ==
[~2021-11-02] VITALS: Ht 165.1 cm; Wt 174.0 kg
[~2021-11-02 13:13] MED LIST changes: -BENA20TA77 PO; +DOXY100C5 PO; +FERR-63 PO; +HIBIL TOP; +INSU100I24 SQ; +INSU100I38 SQ; +LANC1KIT37 MC; -METF-414 MT; +NYST15PO4 TP; +POLY17PO3 PO; -SERT25TA PO; +TOPUD PO; +[UNRECOGNIZED DRUG - CODE] MC
[2021-11-02] MEDS ORDERED: INSU200I SQ (15:52)
[2021-11-02] MEDS ORDERED: GABA-532 PO (15:52)
[2021-11-02] MEDS ORDERED: INSU100I24 SQ (15:52)
[2021-11-02 16:07] VITALS: BP 220/135
== END 2021-11-02 16:10 | disposition home or self-care (01) ==
LOC: ER 13:13
DX: Z76.0 Encounter for issue of repeat prescription (principal); E11.42 Type 2 diabetes mellitus with diabetic polyneuropathy; I10 Essential (primary) hypertension; Z79.4 Long term (current) use of insulin
CPT/HCPCS: 82962; 99283

== ENCOUNTER 2023-09-24 13:26 | Emergency (ER) | payer BC, MEDICAID ==
[~2023-09-24] VITALS: Ht 165.1 cm; Wt 150.0 kg
[~2023-09-24 13:26] MED LIST changes: +GABA-532 PO; -INSU100I38 SQ; +INSU100I53 SQ; +INSU200I SQ
[2023-09-24 13:34] VITALS: O2SAT 100
[2023-09-24 14:28] LABS: CLARITY URINE CLEAR (CLEAR); COLOR URINE YELLOW (YELLOW); GLUCOSE URINE NEGATIVE (NEGATIVE); KETONES URINE NEGATIVE (NEGATIVE); LEUKOCYTE ESTERASE URINE NEGATIVE (NEGATIVE); NITRITE URINE NEGATIVE (NEGATIVE); OCCULT BLOOD URINE NEGATIVE (NEGATIVE); PH URINE 5.5 (4.5-8.0); PROTEIN URINE NEGATIVE (NEGATIVE); SPECIFIC GRAVITY URINE 1.007 (1.005-1.030); UROBILINOGEN URINE 0.2 E.U./dL (0.2-1.0)
[2023-09-24] MEDS: KETOROLAC 30MG/ML VIAL IV STA (14:30)
[2023-09-24] MEDS: SODIUM CHLORIDE 0.9% 1,000 ML IV ONE (14:31)
[2023-09-24] MEDS: ONDANSETRON HCL 4MG/2ML INJ IV STA (14:31)
[2023-09-24 14:44] LABS: ALANINE AMINOTRANSFERASE 16 IU/L (10-49); ALBUMIN 4.6 g/dL (3.2-4.8); ASPARTATE AMINOTRANSFERASE 14 IU/L (<34); BILIRUBIN TOTAL 0.4 mg/dL (0.1-1.0); CALCIUM 9.9 mg/dL (8.7-10.4); CARBON DIOXIDE 27 mEq/L (21-32); CHLORIDE 102 mEq/L (98-107); CREATININE 0.8 mg/dL (0.6-1.0); GLUCOSE 107 mg/dL (70-105); POTASSIUM 4.1 mEq/L (3.5-5.1); PROTEIN TOTAL 8.4 g/dL (6.0-8.3); SODIUM 136 mEq/L (136-145); UREA NITROGEN BLOOD 7 mg/dL (9-23)
[2023-09-24 14:45] LABS: ETHANOL BLOOD < 10 mg/dL (<10); HCG SCREEN NEGATIVE; TROPONIN I HIGH SENSITIVITY < 4 ng/L (3.0-34)
[2023-09-24 14:46] LABS: *AMPHETAMINES SCREEN URINE NEGATIVE (NEGATIVE); *BARBITURATES SCREEN URINE NEGATIVE (NEGATIVE); *BENZODIAZEPINES SCREEN URINE NEGATIVE (NEGATIVE); *COCAINE SCREEN URINE NEGATIVE (NEGATIVE); CANNABINOID URINE SCREEN NEGATIVE (NEGATIVE); ECSTASY MDMA SCREEN URINE NEGATIVE (NEGATIVE); METHADONE URINE SCREEN Neg (NEGATIVE); OPIATES URINE SCREEN NEGATIVE (NEGATIVE); PHENCYCLIDINE URINE SCREEN NEGATIVE (NEGATIVE)
[2023-09-24 14:51] LABS: BASOPHILS % 0.5 % (0.0-2.0); DIFFERENTIAL COMMENT 0; EOSINOPHILS % 1.4 % (0.0-5.0); HEMATOCRIT. 38.4 % (36.0-48.0); HEMOGLOBIN. 11.7 g/dL (12.0-16.0); LYMPHOCYTES % 25.1 % (20.0-50.0); MEAN CORPUSCULAR HEMOGLOBIN 22.7 pg (28.0-32.0); MEAN CORPUSCULAR HGB CONC 30.4 g/dL (31.0-37.0); MEAN CORPUSCULAR VOLUME 74.8 fL (81.0-99.0); MEAN PLATELET VOLUME 7.6 fl (7.4-10.4); MONOCYTES % 4.3 % (2.0-8.0); NEUTROPHILS % 68.7 % (40.0-76.0); PLATELET 622 x1000/uL (130-400); RED BLOOD CELL COUNT 5.13 mill/uL (4.2-5.4); RED CELL DISTRIBUTION WIDTH 17.5 % (11.6-14.6)
[2023-09-24 17:11] LABS: PROTHROMBIN TIME 10.7 sec (9.6-11.0)
[2023-09-24 19:04] VITALS: BP 154/101; PULSE 97; RESP 15; TEMP 97.9
== END 2023-09-24 19:19 | disposition home or self-care (01) ==
LOC: ER 13:26
DX: R55 Syncope and collapse (principal); E11.9 Type 2 diabetes mellitus without complications; I10 Essential (primary) hypertension; Z88.8 Allergy status to other drugs, medicaments and biological substances
CPT/HCPCS: 80053; 80305; 81003; 80320; 84703; 83690; 85025; 85610; 84484; 36415; 71045; 70450; 76705; 93005; 96361; 96374; 96375; 99285; J1885; J2405; J7030; Z7610; G0480